=== PATIENT | male | born 1985 | race Caucasian/White ===

== ENCOUNTER 2017-12-03 18:46 | Emergency (ER) | payer OTHER ==
[~2017-12-03] VITALS: Ht 177.8 cm; Wt 68.0 kg
--- NOTE | 2017-12-03 19:15 | NUR ---
PT TO ER BED 14. BIB [facility], PT WAS FOUND AT [facility] BREATHING 6RR. NARCAN GIVEN STORES DESPATCH HAND 0.4MG. PT PLACED IN GOWN AND ON TOP FRAME FITTER. VSS/RESP EVEN UNLABORED/NAD NOTED/SKIN WARM AND DRY/DENIES N-V-D/AFEBRILE. AWAITING MD MILLER.
--- NOTE | 2017-12-03 19:45 | NUR ---
AT BEDSIDE STATING PT TOOK SOMETHING HE BROUGHT FROM A PHARMACY IN [place]. ALSO STATES PT HAS BEEN SLEEPING AND UNABLE TO WAKE UP SINCE 0900 TODAY.
--- NOTE | 2017-12-03 19:50 | NUR ---
BLOOD DRAWN FROM IV AND HANDED OVER TO LAB AT THE BEDSIDE.
[2017-12-03 19:53] LABS: BASOPHILS % (AUTO) 0.5 % (0.0-2.0); HEMATOCRIT 38 % (39-51); LYMPHOCYTES # (AUTO) 1.3 /CMM (0.8-4.8); LYMPHOCYTES % (AUTO) 20.6 % (20.0-44.0); MEAN CORPUSCULAR HGB CONC 34 g/dl (31.0-36.0); MEAN CORPUSCULAR VOLUME 87 fL (80-96); MONOCYTES # (AUTO) 0.5 /CMM (0.1-1.30); MONOCYTES % (AUTO) 8.6 % (2.0-12.0); NEUTROPHILS # (AUTO) 4.1 /CMM (1.8-8.9); NEUTROPHILS % (AUTO) 67.3 % (43.0-81.0); PLATELET COUNT (AUTO) 205 /CMM (150-450); RDW COEFFICIENT OF VARIATION 12.4 (11.5-15.0); RED BLOOD CELL COUNT(AUTO) 4.32 MIL/uL (4.5-6.0); WHITE BLOOD COUNT (AUTO) 6.1 K/uL (4.3-11.0)
[2017-12-03] MEDS ORDERED: IV NS 0.9% 1,000 ML BAG IV ONE (20:00)
[2017-12-03 20:03] LABS: CARBON DIOXIDE 30 mmol/L (21-32); CHLORIDE 105 mmol/L (98-107); GLUCOSE 86 mg/dL (74-106); POTASSIUM 3.9 mmol/L (3.5-5.1); SODIUM SERUM 142 mmol/L (136-145); UREA NITROGEN, BLOOD 15 mg/dL (7-18)
--- NOTE | 2017-12-03 20:13 | NUR ---
PT TO CT VIA STRETCHER. VSS.
[2017-12-03 20:17] LABS: ACETAMINOPHEN 1 ug/ml (10-30); ALANINE AMINOTRANSFERASE 46 U/L (12-78); ALBUMIN 3.8 g/dL (3.4-5.0); ALKALINE PHOSPHATASE 61 U/L (46-116); ASPARTATE AMINOTRANSFERASE 32 U/L (15-37); BILIRUBIN,DIRECT 0.2 mg/dL (0.0-0.2); BILIRUBIN,TOTAL 0.4 mg/dL (0.2-1.0); TOTAL PROTEIN, SERUM 6.8 g/dL (6.4-8.2)
[2017-12-03 20:18] LABS: ALCOHOL, BLOOD < 3 mg/dL (0-0); SALICYLATE 1.6 mg/dL (2.8-20.0)
--- NOTE | 2017-12-03 20:23 | NUR ---
PT BACK FROM CT.
--- NOTE | 2017-12-03 20:30 | NUR ---
CONDOM CATH PLACED ON PT PER TAILOR GARMENT FITTER ORDER.
[2017-12-03] MEDS ORDERED: NALOXONE PREFILLED SYRINGE 2 MG/2 ML SYRINGE ONE (20:47)
[2017-12-03] MEDS ORDERED: NALOXONE HCL 0.4 MG/ML AMPUL IV ONE (21:00)
--- NOTE | 2017-12-03 21:48 | NUR ---
CALLED [facility] EXPECTING A CALL BACK FROM [facility]
--- NOTE | 2017-12-03 21:55 | NUR ---
18G IV TO L HAND X 2 ATTEMPTS USING ASEPTIC TECH. IV FLUSHES EASILY WITH NS, NO S/S INFILTRATION NOTED AT THIS TIME.
--- NOTE | 2017-12-03 22:10 | NUR ---
LP TRAY SETUP AT BEDSIDE PER INFORMATION ARCHITECT ORDERS.
--- NOTE | 2017-12-03 22:26 | NUR ---
AT BEDSIDE FOR LP.
--- NOTE | 2017-12-03 22:45 | NUR ---
URINE SPECIMEN OBTAINED AND HANDED OVER TO LAB AT BEDSIDE.
[2017-12-03 22:52] LABS: APPEARANCE,URINE CLEAR (CLEAR); BILIRUBIN,URINE NEGATIVE (NEGATIVE); BLOOD, URINE 2+ Ery/uL (NEGATIVE); COLOR,URINE YELLOW (YELLOW); KETONES,URINE NEGATIVE (NEGATIVE); LEUKOCYTE ESTERASE ,URINE 1+ (NEGATIVE); NITRITE, URINE NEGATIVE (NEGATIVE); PH,URINE 7.5 (5.0-8.0); PROTEIN,URINE NEGATIVE (NEGATIVE); UGLUCOSE NEGATIVE (NEGATIVE); UROBILINOGEN,URINE 0.2 EU/dL (0.2)
[2017-12-03 22:58] LABS: RBC,URINE 51-80 /HPF (0-2)
[2017-12-03 22:59] LABS: BACTERIA,URINE Few /HPF (None Seen); SQUAMOUS EPITHELIAL CELL,UR Many /HPF (None Seen)
[2017-12-04] MEDS ORDERED: CEFTRIAXONE 1GM BAG (ER ONLY) 1 GM/50 ML PIGGYBACK IV ONE
[2017-12-04] MEDS ORDERED: CEFTRIAXONE 1GM BAG (ER ONLY) 50 ML IV ONE (00:36)
--- NOTE | 2017-12-04 00:42 | NUR ---
[facility] MD [facility] [phone] ALS 130 ETA
--- NOTE | 2017-12-04 01:06 | NUR ---
PT RESTING QUIETLY, AROUSES TO VOICE. AT BEDSIDE. VSS, RN TO CONTINUE MONITORING PROVIDING SAFETY/COMFORT MEASURES.
--- NOTE | 2017-12-04 01:34 | NUR ---
REPORT GIVEN TO [facility] WITH [phone] FOR TRANSPORT TO [place].
--- NOTE | 2017-12-04 01:47 | NUR ---
REPORT GIVEN TO RADHA KHAN AT [facility] FOR [facility].
[2017-12-04 01:48] VITALS: BP 110/70
== END 2017-12-04 01:49 | disposition short-term general hospital (02) ==
LOC: ER 18:49
DX: R40.4 Transient alteration of awareness (principal); F17.210 Nicotine dependence, cigarettes, uncomplicated
CPT/HCPCS: 36415; 70450; 71045; 80048; 80076; 80305; 80329; 81001; 85025; 93005; 96361; 96365; 96374; 99285; A4349 ×2; A4606; G0480 ×2; J0696; J2310; J7030; Z7610; 81000-TC; 87086-TC